=== PATIENT | female | born 1985 | race Caucasian/White ===

== ENCOUNTER → 2018-08-29 | Outpatient (CLI) | payer OTHER ==
[2018-08-29 08:30] LABS: Basophils # (A) 0.1 k/uL (0-0.2); Basophils % (A) 1 %; Eosinophils # (A) 0.3 k/uL (0-0.7); Eosinophils % (A) 4 %; HCT 40.4 % (34.0-46.0); HGB 13.1 gm/dL (11.4-16.0); Lymphocytes # (A) 2.3 k/uL (1.0-4.8); Lymphocytes % (A) 29 %; MCH 29.3 pg (25.0-35.0); MCHC 32.6 g/dL (31.0-37.0); MCV 90.1 fL (80.0-100.0); Mean Platelet Volume 7.3; Monocytes # (A) 0.5 k/uL (0-1.0); Monocytes % (A) 7 %; Neutrophils # (A) 4.5 k/uL (1.3-7.7); Neutrophils % (A) 58 %; Platelet Count 231 k/uL (150-450); RBC 4.48 m/uL (3.80-5.40); WBC 7.8 k/uL (3.8-10.6)
[2018-08-29 17:33] LABS: Hemoglobin A1C 5.1 % (4.0-6.0)
[2018-08-29 19:34] LABS: Albumin 4.4 g/dL (3.80-4.90); Albumin/Globulin Ratio 2.2 (1.20-2.10); Anion Gap 7.6 mmol/L (4.00-12.00); Calcium 8.7 mg/dL (8.7-10.3); Carbon Dioxide 22.4 mmol/L (21.6-31.8); LDL Cholesterol,Calculated 80.4 mg/dL (0.0-131.0); Potassium 4.3 mmol/L (3.5-5.5); Total Bilirubin 0.4 mg/dL (0.2-1.2); Total Protein 6.4 g/dL (6.2-8.2); VLDL Calculation 11.6 mg/dL (5.00-40.00)
== END | disposition home or self-care (01) ==
LOC: LABWHC1 08:03
PROVIDERS: ATTEND Family Medicine
DX: Z00.00 Encounter for general adult medical examination without abnormal findings (principal); R53.83 Other fatigue; R11.0 Nausea; E16.2 Hypoglycemia, unspecified; K29.70 Gastritis, unspecified, without bleeding
CPT/HCPCS: 36415; 80053; 80061; 83036; 83690; 84443; 85025; 86677

== ENCOUNTER 2019-07-02 13:23 | Emergency (ER) | payer OTHER ==
[2019-07-02 13:56] VITALS: PULSE 60; TEMP 98.4
[2019-07-02] MEDS ORDERED: KETOROLAC 30 MG/ML 1 ML VIAL IM STA (14:31)
[2019-07-02] MEDS ORDERED: CYCLOBENZAPRINE 10MG STARTER 3 TAB BTL PO STA (14:31)
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
[2019-07-02 15:15] VITALS: BP 122/78; RESP 14
== END 2019-07-02 15:07 | disposition home or self-care (01) ==
LOC: EC 13:23
DX: S16.1XXA Strain of muscle, fascia and tendon at neck level, initial encounter (principal); F17.200 Nicotine dependence, unspecified, uncomplicated; Z88.8 Allergy status to other drugs, medicaments and biological substances; V43.52XA Car driver injured in collision with other type car in traffic accident, initial encounter; Y92.410 Unspecified street and highway as the place of occurrence of the external cause
CPT/HCPCS: 99283; 96372; J1885

== ENCOUNTER 2019-08-17 16:24 | Emergency (ER) | payer OTHER ==
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
--- NOTE | 2019-08-17 17:28 | XR ---
EXAMINATION TYPE: XR chest 2V DATE OF EXAM: 08/17/2019 COMPARISON: NONE HISTORY: Chest pain TECHNIQUE: Frontal and lateral views of the chest are obtained. FINDINGS: Heart and mediastinum are normal. Lungs are clear. Diaphragm is normal. Bony thorax appear s normal. IMPRESSION: Normal chest
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
[2019-08-17 18:01] VITALS: BP 122/81; PULSE 66; RESP 17; TEMP 97.7
== END 2019-08-17 18:01 | disposition home or self-care (01) ==
LOC: EC 16:24
DX: S20.229A Contusion of unspecified back wall of thorax, initial encounter (principal); F17.200 Nicotine dependence, unspecified, uncomplicated; Z88.8 Allergy status to other drugs, medicaments and biological substances; Y04.0XXA Assault by unarmed brawl or fight, initial encounter; Y92.69 Other specified industrial and construction area as the place of occurrence of the external cause; Y99.0 Civilian activity done for income or pay
CPT/HCPCS: 71046; 72125; 99284

== ENCOUNTER → 2021-02-06 | Outpatient (CLI) | payer BC ==
--- NOTE | 2021-02-07 11:56 | MM ---
Reason for exam: screening (asymptomatic). Baseline mammogram. History: Family history of breast cancer in maternal grandmother. Took hormonal contraceptives for 19 years. Physical Findings: Nurse did not find any significant physical abnormalities on exam. MG 3D Screening Mammo W/Cad Bilateral CC and MLO view(s) were taken. The breast tissue is heterogeneously dense. This may lower the sensitivity of mammography. Lobulated nodular asymmetric density medial anterior right CC view becomes more apparent on 3D images. Otherwise, no discrete abnormality. These results were verbally communicated with the patient and result sheet given to the patient on 02/06/21. ASSESSMENT: Incomplete: need additional imaging evaluation, BI-RAD 0 RECOMMENDATION: Special view mammogram of the right breast. (3D)
--- NOTE | 2021-02-07 11:58 | MM ---
Reason for exam: additional evaluation requested from abnormal screening. History: Family history of breast cancer in maternal grandmother. Took hormonal contraceptives for 19 years. Physical Findings: Breast exam preformed at baseline screening. MG 3D Work Up W/Cad RT Spot compression CC and LM view(s) were taken of the right breast. The breast tissue is heterogeneously dense. This may lower the sensitivity of mammography. Medial asymmetric density on the right does not persist on additional views. These results were verbally communicated with the patient and result sheet given to the patient on 02/06/21. ASSESSMENT: Negative, BI-RAD 1 RECOMMENDATION: Routine screening mammogram of both breasts at age 39. Manage on a clinical basis with regard to right breast pain.
== END | disposition home or self-care (01) ==
LOC: RADMAMWWP 10:07
PROVIDERS: ATTEND Family Medicine
DX: Z12.31 Encounter for screening mammogram for malignant neoplasm of breast (principal); Z78.0 Asymptomatic menopausal state
CPT/HCPCS: 77061; 77063; 77065; 77067

== ENCOUNTER → 2021-04-05 | Outpatient (CLI) | payer BC ==
--- NOTE | 2021-04-05 07:58 | XR ---
EXAMINATION TYPE: XR chest 2V DATE OF EXAM: 04/05/2021 COMPARISON: Chest x-ray 08/17/2019 HISTORY: Chest pressure, heart palpitations TECHNIQUE: Frontal and lateral views of the chest are obtained. FINDINGS: There is no focal air space opacity, pleural effusion, or pneumothorax seen. The cardiac silhouette size is within normal limits. The osseous structures are intact. IMPRESSION: No acute cardiopulmonary process.
== END | disposition home or self-care (01) ==
LOC: RADXRMAIN 07:26
DX: R07.89 Other chest pain (principal); R00.2 Palpitations
CPT/HCPCS: 71046

== ENCOUNTER 2021-10-13 10:16 | Emergency (ER) | payer BC ==
[2021-10-13 10:28] VITALS: TEMP 98.5
[2021-10-13] MEDS ORDERED: SODIUM CHLORIDE 0.9% 1,000 ML IV STA (11:08)
[2021-10-13] MEDS ORDERED: HYDROmorphone 0.5 MG/0.5 ML SYRINGE IVP STA (11:09)
--- NOTE | 2021-10-13 11:43 | US ---
EXAMINATION TYPE: US gallbladder DATE OF EXAM: 10/13/2021 COMPARISON: NONE CLINICAL HISTORY: pain, ruq. Pain EXAM MEASUREMENTS: Liver Length: 14.3 cm Gallbladder Wall: 0.2 cm CBD: 0.4 cm Right Kidney: 10.3 x 4.7 x 4.6 cm Pancreas: wnl Liver: wnl Gallbladder: wnl Evidence for sonographic Delgado's sign: neg CBD: wnl Right Kidney: No hydronephrosis or masses seen IMPRESSION: Unremarkable study
[2021-10-13 11:55] LABS: Basophils % (A) 1 %; Eosinophils # (A) 0.3 k/uL (0-0.7); Eosinophils % (A) 4 %; HCT 44.2 % (34.0-46.0); HGB 13.4 gm/dL (11.4-16.0); Hypochromasia Slight; Lymphocytes # (A) 1.9 k/uL (1.0-4.8); Lymphocytes % (A) 28 %; MCH 27.3 pg (25.0-35.0); MCHC 30.3 g/dL (31.0-37.0); MCV 89.9 fL (80.0-100.0); Mean Platelet Volume 7.5; Monocytes # (A) 0.5 k/uL (0-1.0); Monocytes % (A) 7 %; Neutrophils # (A) 4.2 k/uL (1.3-7.7); Neutrophils % (A) 59 %; Platelet Count 235 k/uL (150-450); RBC 4.92 m/uL (3.80-5.40)
[2021-10-13 12:01] LABS: Appearance,Urine Clear (Clear); Bilirubin,Urine Negative (Negative); Blood,Urine Negative (Negative); Color,Urine Light Yellow; Glucose,Urine (UA) Negative (Negative); Ketones,Urine Negative (Negative); Leukocyte Esterase,Urine Negative (Negative); Nitrite,Urine Negative (Negative); Protein,Urine Negative (Negative); Specific Gravity,Urine 1.006 (1.001-1.035); Urobilinogen,Urine <2.0 mg/dL (<2.0)
[2021-10-13 12:30] LABS: ALT 28 U/L (4-34); AST 23 U/L (14-36); African American GFR (CKD) >90 (>60 ml/min/1.73 sqM); Albumin 4.3 g/dL (3.5-5.0); Alkaline Phosphatase 88 U/L (38-126); Amylase 55 U/L (30-110); Anion Gap 9 mmol/L; Blood Urea Nitrogen 12 mg/dL (7-17); Carbon Dioxide 25 mmol/L (22-30); Chloride 104 mmol/L (98-107); Glucose 86 mg/dL (74-99); Lipase 49 U/L (23-300); Non-African American GFR(CKD) >90 (>60 ml/min/1.73 sqM); Potassium 4.4 mmol/L (3.5-5.1); Sodium 138 mmol/L (137-145); Total Bilirubin 0.4 mg/dL (0.2-1.3); Total Protein 7.6 g/dL (6.3-8.2)
[2021-10-13] MEDS ORDERED: FAMOTIDINE 20 MG/2 ML VIAL IV STA (12:59)
[2021-10-13] MEDS ORDERED: MAG HYDROX/AL HYDROX/SIMETH 30 ML, HYOSCYAMINE ELIXIR 10 ML, LIDOCAINE VISCOUS 2% 10 ML PO STA ×3 (12:59)
--- NOTE | 2021-10-13 13:11 | ED ---
General Adult HPI - General Chief complaint: Abdominal Pain Stated complaint: N/V, abd pain Time Seen by Provider: 10/13/21 10:54 Source: patient Mode of arrival: ambulatory Limitations: no limitations - History of Present Illness Initial comments: 36-year-old female without any significant past medical history presents to the emergency room for abdominal cramping. Patient states she started to have upper abdominal cramping that started this morning. States she has had a few episodes of nausea vomiting as well. States the pain is more in the middle and on the right side. Patient denies any fevers or chills. Denies any diarrhea. Denies any abdominal surgeries except for a years ago.Patient has no other complaints at this time including shortness of breath, chest pain, headache, or visual changes. - Related Data Home Medications Medication Instructions Recorded Confirmed Escitalopram [Lexapro] 5 mg PO HS 10/13/21 10/13/21 Vitamin B Complex 1 cap PO DAILY 10/13/21 10/13/21 Zinc 50 mg PO DAILY 10/13/21 10/13/21 Previous Rx's Medication Instructions Recorded Pantoprazole [Protonix] 40 mg PO DAILY #30 tab 10/13/21 Allergies Allergy/AdvReac Type Severity Reaction Status Date / Time metoclopramide [From Reglan] Allergy Rash/Hives Verified 10/13/21 11:34 Review of Systems ROS Statement: Those systems with pertinent positive or pertinent negative responses have been documented in the HPI. ROS Other: All systems not noted in ROS Statement are negative. Past Medical History Past Medical History: No Reported History History of Any Multi-Drug Resistant Organisms: None Reported Past Surgical History: Section Past Psychological History: No Psychological Hx Reported Smoking Status: Never smoker Past Alcohol Use History: Occasional Past Drug Use History: None Reported General Exam Limitations: no limitations General appearance: alert, in no apparent distress Head exam: Present: atraumatic Eye exam: Present: normal appearance, PERRL, EOMI. Absent: scleral icterus, conjunctival injection ENT exam: Present: normal exam, mucous membranes moist Neck exam: Present: normal inspection, full ROM. Absent: tenderness Respiratory exam: Present: normal lung sounds bilaterally. Absent: respiratory distress, wheezes Cardiovascular Exam: Present: regular rate, normal rhythm, normal heart sounds GI/Abdominal exam: Present: soft, tenderness (Epigastric tenderness and right upper quadrant tenderness. No left upper quadrant tenderness. No lower abdominal tenderness.), normal bowel sounds. Absent: distended, guarding, rebound, rigid Neurological exam: Present: alert Course Vital Signs 10/13/21 10/13/21 10:25 12:27 Temperature 98.5 F Pulse Rate 73 68 Respiratory 18 17 Rate Blood Pressure 121/71 117/70 O2 Sat by Pulse 98 99 Oximetry Medical Decision Making - Medical Decision Making vitals are stable. HPI and physical exam as documented. Pertinent for e pigastric tenderness. No lower abdominal tenderness. Discussed the pain is cramping in nature. CBC CMP unremarkable. White blood cell count is normal. Amylase and lipase are normal. Urinalysis is unremarkable. Gall bladder ultrasound was negative for acute process. He reevaluated, pain is much improved. Abdominal exam repeated and tenderness has nearly resolved. We will start patient on a tonic said this is epigastric in nature for possible gastritis or ulcer formation. We will follow up with GI. Patient was given strict return parameters and she will return for any worsening symptoms. - Lab Data Result diagrams: 10/13/21 11:33 10/13/21 11:33 Lab Results 10/13/21 10/13/21 10/13/21 Range/Units 11:33 11:33 11:33 WBC 7.0 (3.8-10.6) k/uL RBC 4.92 (3.80-5.40) m/uL Hgb 13.4 (11.4-16.0) gm/dL Hct 44.2 (34.0-46.0) % MCV 89.9 (80.0-100.0) fL MCH 27.3 (25.0-35.0) pg MCHC 30.3 L (31.0-37.0) g/dL RDW 14.0 (11.5-15.5) % Plt Count 235 (150-450) k/uL MPV 7.5 Neutrophils % 59 % Lymphocytes % 28 % Monocytes % 7 % Eosinophils % 4 % Basophils % 1 % Neutrophils # 4.2 (1.3-7.7) k/uL Lymphocytes # 1.9 (1.0-4.8) k/uL Monocytes # 0.5 (0-1.0) k/uL Eosinophils # 0.3 (0-0.7) k/uL Basophils # 0.0 (0-0.2) k/uL Hypochromasia Slight Sodium 138 (137-145) mmol/L Potassium 4.4 (3.5-5.1) mmol/L Chloride 104 (98-107) mmol/L Carbon Dioxide 25 (22-30) mmol/L Anion Gap 9 mmol/L BUN 12 (7-17) mg/dL Creatinine 0.55 (0.52-1.04) mg/dL Est GFR (CKD-EPI)AfAm >90 (>60 ml/min/1.73 sqM) Est GFR (CKD-EPI)NonAf >90 (>60 ml/min/1.73 sqM) Glucose 86 (74-99) mg/dL Plasma Lactic Acid Román (0.7-2.0) mmol/L Calcium 9.0 (8.4-10.2) mg/dL Total Bilirubin 0.4 (0.2-1.3) mg/dL AST 23 (14-36) U/L ALT 28 (4-34) U/L Alkaline Phosphatase 88 (38-126) U/L Total Protein 7.6 (6.3-8.2) g/dL Albumin 4.3 (3.5-5.0) g/dL Amylase 55 (30-110) U/L Lipase 49 (23-300) U/L Urine Color Light Yellow Urine Appearance Clear (Clear) Urine pH 7.0 (5.0-8.0) Ur Specific [place] 1.006 (1.001-1.035) Urine Protein Negative (Negative) Urine Glucose (UA) Negative (Negative) Urine Ketones Negative (Negative) Urine Blood Negative (Negative) Urine Nitrite Negative (Negative) Urine Bilirubin Negative (Negative) Urine Urobilinogen <2.0 (<2.0) mg/dL Ur Leukocyte Esterase Negative (Negative) 10/13/21 Range/Units 11:33 WBC (3.8-10.6) k/uL RBC (3.80-5.40) m/uL Hgb (11.4-16.0) gm/dL Hct (34.0-46.0) % MCV (80.0-100.0) fL MCH (25.0-35.0) pg MCHC (31.0-37.0) g/dL RDW (11.5-15.5) % Plt Count (150-450) k/uL MPV Neutrophils % % Lymphocytes % % Monocytes % % Eosinophils % % Basophils % % Neutrophils # (1.3-7.7) k/uL Lymphocytes # (1.0-4.8) k/uL Monocytes # (0-1.0) k/uL Eosinophils # (0-0.7) k/uL Basophils # (0-0.2) k/uL Hypochromasia Sodium (137-145) mmol/L Potassium (3.5-5.1) mmol/L Chloride (98-107) mmol/L Carbon Dioxide (22-30) mmol/L Anion Gap mmol/L BUN (7-17) mg/dL Creatinine (0.52-1.04) mg/dL Est GFR (CKD-EPI)AfAm (>60 ml/min/1.73 sqM) Est GFR (CKD-EPI)NonAf (>60 ml/min/1.73 sqM) Glucose (74-99) mg/dL Plasma Lactic Acid Román 0.8 (0.7-2.0) mmol/L Calcium (8.4-10.2) mg/dL Total Bilirubin (0.2-1.3) mg/dL AST (14-36) U/L ALT (4-34) U/L Alkaline Phosphatase (38-126) U/L Total Protein (6.3-8.2) g/dL Albumin (3.5-5.0) g/dL Amylase (30-110) U/L Lipase (23-300) U/L Urine Color Urine Appearance (Clear) Urine pH (5.0-8.0) Ur Specific [place] (1.001-1.035) Urine Protein (Negative) Urine Glucose (UA) (Negative) Urine Ketones (Negative) Urine Blood (Negative) Urine Nitrite (Negative) Urine Bilirubin (Negative) Urine Urobilinogen (<2.0) mg/dL Ur Leukocyte Esterase (Negative) Disposition Clinical Impression: Abdominal pain Disposition: HOME SELF-CARE Condition: Good Instructions (If sedation given, give patient instructions): Abdominal Pain (ED) Additional Instructions: Take medications as directed. Follow-up with your doctor as well as GI. Return to the emergency room for any worsening symptoms. Prescriptions: Pantoprazole [Protonix] 40 mg PO DAILY #30 tab Is patient prescribed a controlled substance at d/c from ED?: No Referrals: Osvaldo Nuñez DO [Primary Care Provider] - 1-2 days Angelia Hale MD [STAFF PHYSICIAN] - 1-2 days Time of Disposition: 13:10
[2021-10-13 13:31] VITALS: BP 111/67; PULSE 67; RESP 18
== END 2021-10-13 13:40 | disposition home or self-care (01) ==
LOC: EC 10:16
DX: R10.9 Unspecified abdominal pain (principal); Z72.89 Other problems related to lifestyle
CPT/HCPCS: 36415; 80053; 82150; 83605; 83690; 85025; 81003; 81025; 76705; 99284; 96374; 96375; 96361; J1170

== ENCOUNTER 2021-11-14 10:01 | Day surgery (SDC) | payer BC ==
[2021-11-09 10:32] VITALS: BMI 31.8
[~2021-11-14 10:01] MED LIST: LACTATED RINGERS 1,000 ML IV SCH; LIDOCAINE 1% (10MG/ML) FOR IV START INTRADERMA PRN
[2021-11-14 10:39] VITALS: RESP 18; TEMP 98.4
[2021-11-14 10:50] LABS: Glucose,Whole Blood 78 mg/dL (75-99)
[2021-11-14] MEDS ORDERED: PROPOFOL 10 MG/ML 20 ML VIAL IV ONE (11:24)
--- NOTE | 2021-11-14 11:32 | P.PCN ---
Date of Procedure: 11/14/21 Procedure(s) Performed: BRIEF HISTORY: Patient is a 36-year-old, pleasant, white female scheduled for an upper endoscopy as a part of evaluation of epigastric pain for the last 1 month duration. Centimeters episodes of screening and the last 1 month and lasts for a few hours and resolved. She can have also the gallbladder that was unremarkable. She is hence scheduled for an upper endoscopy to further.. PROCEDURE PERFORMED: Esophagogastroduodenoscopy. With biopsy PREOPERATIVE DIAGNOSIS: And intermittent episodes of epigastric pain of one month duration. IV sedation per anesthesia. PROCEDURE: After informed consent was obtained, the patient was brought into the endoscopy unit. IV sedation was administered by Anesthesia under continuous monitoring. Initially the Olympus GIF-140 video endoscope was inserted into the mouth. Esophagus intubated without any difficulty. It was gradually advanced into the stomach and duodenum and carefully examined. The bulb and the second part of the duodenum appeared normal. The scope at this time was withdrawn to the stomach, adequately insufflated with air, and upon careful examination, mucosa of the antrum, had linear areas of erythema consistent with mild gastritis. Biopsies were done from this area. The body, cardia and the fundus appeared normal. The scope was then withdrawn into the esophagus. The GE junction was located at 39 cm from the incisors. The esophagus appeared normal. There were no erosions or ulcerations seen and the patient tolerated the procedure well. IMPRESSION: 1. Mild antral gastritis. 2. No evidence of esophagitis or peptic ulcer disease. RECOMMENDATIONS: The findings of this examination were discussed with the patient as well as a family. She was advised to follow with the biopsy results.. She will continue with Protonix 40 mg daily. She will be scheduled for HIDA scan outpatient basis
[2021-11-14] MEDS ORDERED: PANTOPRAZOLE 40 MG/10 ML VIAL IVP ONE (11:52)
[2021-11-14 11:57] VITALS: BP 94/59; PULSE 61
== END 2021-11-14 12:35 | disposition home or self-care (01) ==
LOC: ORWHC2ENDO 10:01
PROVIDERS: ATTEND Internal Medicine Gastroenterology
DX: K29.50 Unspecified chronic gastritis without bleeding (principal); K21.9 Gastro-esophageal reflux disease without esophagitis; E16.2 Hypoglycemia, unspecified; F41.9 Anxiety disorder, unspecified; F32.A Depression, unspecified; Z87.891 Personal history of nicotine dependence; Z79.899 Other long term (current) drug therapy; Z88.8 Allergy status to other drugs, medicaments and biological substances
CPT/HCPCS: 81025; 88305; 43239; J2704; C9113

== ENCOUNTER → 2021-12-12 | Outpatient (CLI) | payer BC ==
--- NOTE | 2021-12-12 09:30 | NM ---
EXAMINATION TYPE: NM hepatobiliary w EF DATE OF EXAM: 12/12/2021 COMPARISON: Gallbladder ultrasound October 13, 2021 HISTORY: Right upper quadrant pain. Additional symptoms of epigastric pain with nausea and vomiting p er patient TECHNIQUE: After the intravenous administration of 5.2 mCi Tc 99m Mebrofenin hepatobiliary scintigrap hy is performed. Immediate images post injection. FINDINGS: There is satisfactory initial accumulation of tracer by the liver. The gallbladder is visualized wit hin 30 minutes. The small bowel activity is noted within 20 minutes. At one hour 8 ounces of oral e nsure plus is given to mimic CCK and gallbladder ejection fraction is calculated at 71 %, in the norm al range. Therefore there is no scintigraphic evidence of cystic or common bile duct obstruction to suggest acute cholecystitis or gallbladder dyskinesia. IMPRESSION: Exam is within normal limits.
== END | disposition home or self-care (01) ==
LOC: RADNMMAIN 06:42
PROVIDERS: ATTEND Internal Medicine Gastroenterology
DX: R10.13 Epigastric pain (principal); R10.11 Right upper quadrant pain; R11.2 Nausea with vomiting, unspecified
CPT/HCPCS: 78226; A9537

== ENCOUNTER 2023-01-17 05:39 | Day surgery (SDC) | payer BC ==
--- NOTE | 2023-01-16 12:29 | P.HPOB ---
History of Present Illness H&P Date: 01/16/23 Chief Complaint: Menorrhagia/dysmenorrhea This patient is a pleasant 37 yr female who is presenting for endometrial ablation secondary to menorrhagia and dysmenorrhea. This has been going on for a while. Evaluation has included a transvaginal ultrasound which was normal with the exception of s1.7cm right fundal fibroid. She tried Anaprox. She was offered trial of hormonal options, but does not want. She would like to try an endometrial ablation. Review of Systems Genitourinary: Reports as per HPI, Reports dysmenorrhea Menstruation: Reports period heavy Past Medical History Past Medical History: GERD/Reflux Additional Past Medical History / Comment(s): hypoglycemia, heavy bleeding with periods. low iron. on and off. History of Any Multi-Drug Resistant Organisms: None Reported Past Surgical History: Section, Tubal Ligation Additional Past Surgical History / Comment(s): EgD Past Anesthesia/Blood Transfusion Reactions: No Reported Reaction Past Psychological History: No Psychological Hx Reported Smoking Status: Former smoker Past Alcohol Use History: None Reported Past Drug Use History: None Reported - Past Family History Mother Family Medical History: No Reported History Father Family Medical History: Diabetes Mellitus Medications and Allergies Home Medications Medication Instructions Recorded Confirmed Type Ibuprofen [Motrin Ib] 600 - 800 mg PO Q8H PRN 01/10/23 01/10/23 History Allergies Allergy/AdvReac Type Severity Reaction Status Date / Time metoclopramide [From Reglan] Allergy Rash/Hives Verified 01/10/23 12:15 Exam - OBG Physical Exam Abdomen: bowel sounds normal Vulva: both: normal Vagina: normal moisture, no discharge Cervix: no lesion, no discharge Uterus: normal size, normal contour Results Trasvaginal ultrasound on Dec 28 showed endometrium to be normal. Possible 2.1cm fundal fibroid. Assessment and Plan Assessment: This is a pleasant 37 yr female with longstanding menorrhagia and dysmenorrhea who desires trial of endometrial ablation for treatment. Plan is hysteroscopy, D&C, and Novasure endometrial ablation. I have discussed this surgery with Tano and the risks: infection, bleeding, possible uterine perforation and/or thermal injury. All of her questions were answered and a written consent obtained. (1) Menorrhagia Status: Acute Code(s): N92.0 - EXCESSIVE AND FREQUENT MENSTRUATION WITH REGULAR CYCLE SNOMED Code(s): 454039106 (2) Dysmenorrhea Status: Acute Code(s): N94.6 - DYSMENORRHEA, UNSPECIFIED SNOMED Code(s): 568692103
[~2023-01-17 05:39] MED LIST changes: -LACTATED RINGERS 1,000 ML IV SCH; -LIDOCAINE 1% (10MG/ML) FOR IV START INTRADERMA PRN; +Pre Op ABX Message 1 EACH MISC MISCELLANE ONE
[2023-01-17] MEDS ORDERED: LACTATED RINGERS 1,000 ML IV SCH (06:09)
[2023-01-17] MEDS ORDERED: ONDANSETRON 4 MG/2 ML VIAL IVP ONE (06:09)
[2023-01-17] MEDS ORDERED: LIDOCAINE 1% (10MG/ML) FOR IV START INTRADERMA PRN (06:09)
[2023-01-17] MEDS ORDERED: DEXAMETHASONE SOD PHOSPHATE 4 MG/ML 1 ML VIAL IV ONE (06:09)
[2023-01-17] MEDS ORDERED: MIDAZOLAM 2 MG/2 ML VIAL IV PRN (06:09)
[2023-01-17] MEDS ORDERED: LACTATED RINGERS 1,000 ML IV ONE ×2 (06:30→09:00)
[2023-01-17] MEDS ORDERED: LIDOCAINE 2% INJ 20 MG/ML (2 ML VIAL) ONE (06:50)
[2023-01-17] MEDS ORDERED: KETOROLAC 15 MG/ML 1 ML VIAL ONE (06:50)
[2023-01-17] MEDS ORDERED: fentaNYL (PF) 50 MCG/ML 2 ML AMP ONE (06:50)
[2023-01-17] MEDS ORDERED: MIDAZOLAM 2 MG/2 ML VIAL ONE (06:50)
[2023-01-17] MEDS ORDERED: PROPOFOL 10 MG/ML 20 ML VIAL IV ONE (06:50)
--- NOTE | 2023-01-17 07:31 | P.OP ---
Date of Procedure: 01/17/23 Preoperative Diagnosis: Menorrhagia and dysmenorrhea Postoperative Diagnosis: Same Procedure(s) Performed: #1: Hysteroscopy. #2: Dilation and curettage. #3: NovaSure endometrial ablation Anesthesia: MAC Surgeon: Matt Duffy Estimated Blood Loss (ml): 20 Urine output (ml): 10 Pathology: other (Uterine curettings) Condition: stable Disposition: PACU Indications for Procedure: Please see dictated H&P for intimate details of this patient's admission. In brief summary this pleasant 37-year-old 2 para 2 female with long- standing menorrhagia and dysmenorrhea who wishes to proceed with trial of NovaSure endometrial ablation for treatment. Patient I have discussed the surgery and risks and risks of infection, bleeding, possible uterine perforation, and/or thermal injury. All the patient's questions are answered and a written consent is obtained. Operative Findings: This patient had a normal-appearing endometrial cavity. Description of Procedure: This patient is taken to the operating room where she is laid in the supine position. She subsequently undergoes general mask anesthesia without incident. With an adequate level of anesthesia she's placed in dorsal lithotomy position. She has a vaginal and perineal prep and drape. Examination under anesthesia shows a mid position uterus of normal size. I placed a weighted speculum posterior vagina. The bladder is drained for 10 mL of clear urine. I then grasped the anterior lip of cervix with an Allis clamp. The cervix is then gently sounded to 9.5 cm. The cervix is then dilated carefully to allow the hysteroscope easily and the uterine cavity. Hysteroscopy is performed uterine cavity length was calculated to be 6.0 cm. The cervix is dilated more to allow a small curette easily and the uterine cavity. A gentle but thorough 4 quadrant curettage is done. This completed the NovaSure device is then opened. It is set at a length of 6.0 cm and opens up to a width of 4.3 cm. After passing the cavity integrity test is then enabled at 142 W setting for 57 seconds. The NovaSure device is then removed. Hysteroscopy is performed again and the uterine cavity appears to be ablated up to the endocervix. With this completed the procedure is ended. The Allis clamp and weighted speculum removed. All counts are correct 3. There are no complications. Patient is awakened from anesthesia and taken recovery room satisfactory condition.
[2023-01-17 07:36] VITALS: TEMP 97.2
[2023-01-17] MEDS: HYDROmorphone 0.5 MG/0.5 ML SYRINGE IVP PRN ×3 (07:44→08:19)
[2023-01-17] MEDS ORDERED: KETOROLAC 15 MG/ML 1 ML VIAL IVP ONE (08:06)
[2023-01-17 08:32] VITALS: RESP 16
[2023-01-17] MEDS ORDERED: ACETAMINOPHEN TAB 500 MG TAB ONE (09:05)
[2023-01-17] MEDS ORDERED: ACETAMINOPHEN TAB 500 MG TAB PO ONE (09:07)
[2023-01-17 09:40] VITALS: BP 105/65; PULSE 62
== END 2023-01-17 09:55 | disposition home or self-care (01) ==
LOC: OR 05:39
PROVIDERS: ATTEND Obstetrics & Gynecology
DX: N92.0 Excessive and frequent menstruation with regular cycle (principal); N94.6 Dysmenorrhea, unspecified; D25.9 Leiomyoma of uterus, unspecified; K21.9 Gastro-esophageal reflux disease without esophagitis; Z79.1 Long term (current) use of non-steroidal anti-inflammatories (NSAID); Z83.3 Family history of diabetes mellitus; Z87.891 Personal history of nicotine dependence; Z88.8 Allergy status to other drugs, medicaments and biological substances
CPT/HCPCS: 81025; 88305; 58563; J2250; J1100; J2405; J3010; J1885; J2704; J1170; J2001

== ENCOUNTER 2023-03-13 22:01 | Inpatient (IN) | payer BC, MEDICAID ==
[2023-03-13] MEDS ORDERED: MAGNESIUM HYDROXIDE 2,400 MG/10 ML CUP PO PRN (22:05)
[2023-03-13] MEDS ORDERED: MAG HYDROX/AL HYDROX/SIMETH 30 ML CUP PO PRN (22:05)
[2023-03-13] MEDS ORDERED: ACETAMINOPHEN TAB 325 MG TAB PO PRN (22:05)
[2023-03-13] MEDS ORDERED: OLANZapine 10 MG VIAL IM PRN (22:09)
[2023-03-13] MEDS ORDERED: hydrOXYzine HCL 50 MG/ML 1 ML VIAL IM PRN (22:09)
[2023-03-13] MEDS ORDERED: hydrOXYzine pamoate 25 MG CAP PO PRN (22:09)
[2023-03-13] MEDS ORDERED: OLANZapine 5 MG TAB PO PRN (22:09)
[2023-03-14] MEDS: NICOTINE 14MG/24HR PATCH TRANSDERM SCH (08:49)
[2023-03-14] MEDS ORDERED: LORazepam 1 MG TAB PO PRN (11:53)
[2023-03-14] MEDS: DULoxetine HCL 30 MG CAPSULE.DR PO SCH (12:18)
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
[2023-03-14] MEDS: traZODone HCL 50 MG TAB PO SCH (22:00)
[2023-03-15] MEDS: NICOTINE 14MG/24HR PATCH TRANSDERM SCH (08:47)
[2023-03-15] MEDS: DULoxetine HCL 30 MG CAPSULE.DR PO SCH ×2 (08:47→21:02)
[2023-03-15] MEDS: MULTIVITAMINS, THERA 1 EACH TAB PO SCH (08:48)
[2023-03-15] MEDS: FOLIC ACID 1 MG TAB PO SCH (08:48)
[2023-03-15] MEDS: THIAMINE 100 MG TAB PO SCH (08:48)
--- NOTE | 2023-03-15 10:34 | P.PN ---
Progress Note - Text Progress Note Date: 03/15/23 Interval Hx: Patient was seen today sitting in on group this morning and was agreeable to speak to racebook writer in the office. Patient states that she is feeling "about the same" compared to yesterday. She claims she did not see much improvement since being started on the medications. She states that she did have a mild reaction and felt "a little bit off" after taking her first dose of Cymbalta yesterday however this morning tolerated better. Continues to have poor appetite and claims that she did not eat much breakfast today. She did eat lunch and dinner yesterday. Claims that she slept about 5-6 hours last night. States that her anxiety is about the same. We spoke about the option for when necessary Vistaril. She claims that she is not having much withdrawal symptoms from the alcohol. She continues to have a constricted affect. We spoke about adjusting her medications over the weekend which she was okay with. Claims that she is trying to go to as many groups as she can to "pass the time". At this time she is denying any suicidal or homicidal ideations intent or plan. Denying any auditory or visual hallucinations. Mental status exam: General Appearance: Patient appears to be wearing glasses, nose ring, stated age is alert, directable, and attempts to cooperate. not Tearful today. Patient appears to have fair hygiene and grooming. Behavior: Patient is seated without any agitated behavior. Attempts to cooperate. Not tearful. Speech: Patient's speech is fluent and nonpressured. Monotone. Mood/Affect: Patient reports their mood is depressed and anxious, no improvement since yesterday, affect is congruent and constricted. Suicidality/Homicidality: Patient denies having any homicidal ideation intent or plan. Denies any suicidal ideations intent or plan Perceptions: Patient denies any visual hallucinations and denies any auditory hallucinations Though content/process: There is no evidence of any delusional thought content and thought process is linear and goal-directed. Memory and concentration: AOX3, grossly intact for the purposes of this session Judgment and insight: Improving mildly IMPRESSIONS: Major depressive disorder, recurrent, severe without psychotic features Anxiety disorder unspecified Overdose on psychotropic medications Alcohol use disorder Nicotine dependence PLAN: -Patient is admitted under voluntary status to [facility] for stabilization of psychiatric symptoms and safety. Patient has signed adult voluntary form and medication consent and is placed in patient's chart. -Medications : Increase Cymbalta 30 mg bid for mood/anxiety, trazodone 50 mg daily at bedtime for insomnia/mood. -Ativan, vistaril and zyprexa PRN for agitation/aggression -thiamine, MVM for etoh use -CIWA protocol with Ativan PRN for ETOH withdrawal, can d/c tomorrow if patient continues to not demonstrate w/d sx. -NRT - nicotine patch -SW on board for discharge planning. Encourage patient to participate in groups to work on coping skills. likely discharge early next week if patient improves. will offer outpatient subtance use resources.
[2023-03-16] MEDS: traZODone HCL 50 MG TAB PO SCH ×2 (00:10→22:02)
[2023-03-16] MEDS: THIAMINE 100 MG TAB PO SCH (08:37)
[2023-03-16] MEDS: MULTIVITAMINS, THERA 1 EACH TAB PO SCH (08:37)
[2023-03-16] MEDS: FOLIC ACID 1 MG TAB PO SCH (08:38)
[2023-03-16] MEDS: DULoxetine HCL 30 MG CAPSULE.DR PO SCH ×2 (08:38→21:02)
--- NOTE | 2023-03-16 19:08 | P.PN ---
Progress Note - Text Progress Note Date: 03/16/23 Interval history: Patient was seen on the phone and was directable and agreeable to speak with writer editor. She reports her mood is "ok", except for feeling irritated in finding out her ex- wants to get try to get shared custody of their children. She denies suicidal ideations, intent or plan, and denies any homicidal ideation, intent or plan. She reports her good mood, sleep and improving appetite. Denies any auditory or visual hallucinations. Patient denies any side effects from the medications and has been compliant with meds. Mental status exam: General Appearance: Patient appears to be stated age, has tattoos on arms. Behavior: No agitated behavior. Patient is calm and directable. Speech: Patient's speech is fluent and non-pressured. Mood/Affect: Mood is improving, affect is congruent and constricted. Suicidality/Homicidality: Patient denies having any suicidal or homicidal ideation intent or plan. Perceptions: Patient denies any auditory or visual hallucinations. Though content/process: There is no evidence of any delusional thought content and thought process is linear and goal-directed. Memory and concentration: AOX3, grossly intact for the purposes of this session Judgment and insight: improving Assessment/Plan: Continue with current diagnosis. Patient continues to meet criteria for inpatient psychiatric admission for symptom stabilization and safety. Patient will be maintained on current psychotropic medication regimen. Monitor for medication compliance and for any psychotropic medication side effects. Will continue to monitor ongoing response to treatment. Encouraged participation in milieu.
--- NOTE | 2023-03-17 00:29 | P.PN ---
Progress Note - Text Progress Note Date: 03/17/23 Attempted to see the patient in the mental health unit. The patient refused to be seen or be evaluated. Will attempt again tomorrow
[2023-03-17] MEDS: THIAMINE 100 MG TAB PO SCH (08:46)
[2023-03-17] MEDS: DULoxetine HCL 30 MG CAPSULE.DR PO SCH ×2 (08:46→21:03)
[2023-03-17] MEDS: MULTIVITAMINS, THERA 1 EACH TAB PO SCH (08:47)
[2023-03-17] MEDS: FOLIC ACID 1 MG TAB PO SCH (08:47)
--- NOTE | 2023-03-17 20:23 | P.PN ---
Progress Note - Text Progress Note Date: 03/17/23 Interval history: Patient was seen active on the unit and was directable and agreeable to speak with technical document writer. She reports her mood is "good". She denies suicidal ideation, intent or plan, and denies any homicidal ideation, intent or plan. She reports good mood, sleep and improving appetite. Denies any auditory or visual hallucinations. Patient denies any side effects from the medications and has been compliant with meds. Mental status exam: General Appearance: Patient appears to be stated age, has tattoos on arms. Behavior: No agitated behavior. Patient is calm and directable. Speech: Patient's speech is fluent and non-pressured. Mood/Affect: Mood is improving, affect is congruent and constricted. Suicidality/Homicidality: Patient denies having any suicidal or homicidal ideation intent or plan. Perceptions: Patient denies any auditory or visual hallucinations. Though content/process: There is no evidence of any delusional thought content and thought process is linear and goal-directed. Memory and concentration: AOX3, grossly intact for the purposes of this session Judgment and insight: improving Assessment/Plan: Continue with current diagnosis. Patient continues to meet criteria for inpatient psychiatric admission for symptom stabilization and safety. Patient will be maintained on current psychotropic medication regimen. Monitor for medication compliance and for any psychotropic medication side effects. Will continue to monitor ongoing response to treatment. Encouraged participation in milieu. Consider discharge tomorrow (Saturday) if continues to stabilize.
[2023-03-17] MEDS: traZODone HCL 50 MG TAB PO SCH (21:59)
--- NOTE | 2023-03-18 04:38 | P.CONS ---
History of Present Illness - Reason for Consult Consult date: 03/18/23 - History of Present Illness The patient is a 38-year-old female who had presented to [facility] with complaint of depression and suicidal ideation. The patient was admitted to the mental health unit where she was seen and evaluated accompanied by the mental health unit RN. The patient states that she had recently been really stressed out and had attempted to commit suicide by taking 5 tablets of Xanax and drinking alcohol. She reports drinking 5-6 beers nightly. The patient reports feeling significantly better after her admission into the hospital. She denied any physical complaints at the time of interview. He denied experiencing chest discomfort, shortness of breath, fever, chills, cough, nausea, vomiting, abdominal pain, diarrhea. Review of systems: Pertinent positives and negatives as discussed in HPI, a complete review of systems was performed and all other systems are negative. Physical examination: General: non toxic, no distress, appears at stated age, obese Derm: no unusual rashes/lesions, no unusual ecchymoses, warm, dry Head: atraumatic, normocephalic, symmetric Eyes: EOMI, no lid lag, anicteric sclera ENT: Nose and ears atraumatic, no thrush, no pharyngeal erythema Neck: trachea midline, supple Mouth: no lip lesion, mucus membranes moist Cardiovascular: S1S2 reg, no murmur, no edema Lungs: CTA bilateral, no rhonchi, no rales , no accessory muscle use Abdominal: soft, nontender to palpation, no guarding Ext: no gross muscle atrophy, no contractures, Neuro: No gross focal neuro deficits noted Psych: Alert, oriented, appropriate affect Assessment: Depression and suicidal ideation Plan: Defer management to primary psychiatry service Thank you for allowing us to participate in the care of this patient. We will follow peripherally. Do not hesitate to contact us with questions. Someone can be reached from the [facility] hospitalist group at all hours of the day at [phone]. Past Medical History Past Medical History: GERD/Reflux Additional Past Medical History / Comment(s): hypoglycemia, heavy bleeding with periods. low iron. on and off. History of Any Multi-Drug Resistant Organisms: None Reported Past Surgical History: Section, Tubal Ligation Additional Past Surgical History / Comment(s): EgD Past Anesthesia/Blood Transfusion Reactions: No Reported Reaction Smoking Status: Vaper - Past Family History Mother Family Medical History: No Reported History Father Family Medical History: Diabetes Mellitus Medications and Allergies Home Medications Medication Instructions Recorded Confirmed Type Ibuprofen [Motrin Ib] 600 - 800 mg PO Q8H PRN 01/10/23 01/17/23 History Ibuprofen [Motrin] 600 mg PO Q6HR PRN #30 tab 01/17/23 Rx Allergies Allergy/AdvReac Type Severity Reaction Status Date / Time metoclopramide [From Reglan] Allergy Rash/Hives Verified 01/17/23 06:17 Physical Exam Vitals: Vital Signs Temp Pulse Resp BP Pulse Ox 03/17/23 06:29 98.0 F 76 16 115/58 98 Intake and Output 03/17/23 03/17/23 03/18/23 14:59 22:59 06:59 Other: Weight 79.5 kg
[2023-03-18 06:38] VITALS: BP 112/64; PULSE 66; RESP 18; TEMP 97.8
[2023-03-18] MEDS: FOLIC ACID 1 MG TAB PO SCH (09:11)
[2023-03-18] MEDS: DULoxetine HCL 30 MG CAPSULE.DR PO SCH (09:11)
[2023-03-18] MEDS: THIAMINE 100 MG TAB PO SCH (09:12)
[2023-03-18] MEDS: MULTIVITAMINS, THERA 1 EACH TAB PO SCH (09:12)
--- NOTE | 2023-03-18 11:53 | P.DS ---
Providers Date of admission: 03/13/23 22:20 Patient was seen today on the unit to review her progress. She indicated she has been improving in her mood . She was confident that she could continue to cope with custody related issue . She compliemnted herself for approaching the Crisis with short term stay . She tolerated the Rx with no adverse events. She did not have any EPS and no longer has any suciidal ideation. She was compliant with follow up Dischage Rx; Major depressive disorder in partial remission ; marked stressors Rx : as indicated in Rx panel Attending physician: Jg Hutchison MD Consults: 03/13/23 22:05 Consult Physician Routine Consulting Provider: [facility] Consult Reason/Comments: H&P Do you want consulting provider notified?: Yes Primary care physician: Stated None Plan - Discharge Summary Discharge Rx Participant: Yes New Discharge Prescriptions: New traZODone HCL [Desyrel] 50 mg PO HS 30 Days #30 tab Discontinued Ibuprofen [Motrin Ib] 600 - 800 mg PO Q8H PRN PRN Reason: Pain Ibuprofen [Motrin] 600 mg PO Q6HR PRN #30 tab PRN Reason: Pain Discharge Medication List traZODone HCL [Desyrel] 50 mg PO HS 30 Days #30 tab 03/18/23 [Rx] Activity/Diet/Wound Care/Special Instructions: Avoid the use of street drugs and alcohol. Take all medications as prescribed. When you are in need of refills on your medications, please contact your medical provider and/or outpatient psychiatrist to have this done. Please go to scheduled outpatient appointments for aftercare treatment. If symptoms return or become worse, call the crisis line at and/or go to the nearest emergency room for evaluation.
== END 2023-03-18 13:00 | disposition home or self-care (01) | DRG 885 ==
LOC: 3MHU 22:20
PROVIDERS: ADMIT Psychiatry & Neurology Psychiatry; ATTEND Psychiatry & Neurology Psychiatry
DX: F32.4 Major depressive disorder, single episode, in partial remission (principal); F10.90 Alcohol use, unspecified, uncomplicated; F41.9 Anxiety disorder, unspecified; T42.4X2A Poisoning by benzodiazepines, intentional self-harm, initial encounter; R63.0 Anorexia; F17.290 Nicotine dependence, other tobacco product, uncomplicated; Z62.810 Personal history of physical and sexual abuse in childhood; Z62.811 Personal history of psychological abuse in childhood; Z62.812 Personal history of neglect in childhood; Z68.31 Body mass index [BMI] 31.0-31.9, adult; Z88.8 Allergy status to other drugs, medicaments and biological substances; Z81.1 Family history of alcohol abuse and dependence; Z63.8 Other specified problems related to primary support group

== ENCOUNTER → 2023-06-24 | Outpatient (CLI) | payer BC ==
--- NOTE | 2023-06-25 09:33 | CT ---
EXAMINATION TYPE: CT abdomen pelvis w con DATE OF EXAM: 06/24/2023 COMPARISON: None HISTORY: c/o diarrhea CT DLP: 842.6 mGycm Automated exposure control for dose reduction was used. CONTRAST: CT scan of the abdomen pelvis is performed with IV Contrast, patient injected with 100 mL of Isovue 3 00. FINDINGS- LUNG BASES- bibasilar atelectasis. Heart mildly prominent. Small hiatal hernia. LIVER/GB- No gross abnormality is appreciated. PANCREAS- No gross abnormality is seen. SPLEEN- No gross abnormality is seen. ADRENALS- No gross abnormality is seen. KIDNEYS/BLADDER- no hydronephrosis nephrolithiasis or renal mass. BOWEL- no evidence of bowel obstruction or inflammation. Mild wall thickening of the terminal ileum. Retained fecal debris throughout the colon. LYMPH NODES- No greater than 1cm abdominal or pelvic lymph nodes are appreciated. OSSEOUS STRUCTURES- mild degenerative disc disease. OTHER- on the right lateral side wall there is a soft tissue mass measuring fat attenuation and 3.7 cm compatible with a intramuscular lipoma. There is a small cyst within the left ovary measuring 1.5 cm. Scattered phleboliths in the pelvis. Lobulation of the uterus noted. Aorta normal caliber. IMPRESSION- 1. No evidence of bowel obstruction or inflammation. Very mild wall thickening of the terminal ileum could be associated with a mild enteritis correlate clinically. 2. Lobulation of the uterus with suspected 1.5 cm left ovarian cyst. Consider follow-up ultrasound to assess for fibroids.
== END | disposition home or self-care (01) ==
LOC: RADCTMAIN 15:53
PROVIDERS: ATTEND Family Medicine
DX: K63.89 Other specified diseases of intestine (principal); R19.7 Diarrhea, unspecified
CPT/HCPCS: 74177; Q9967

== ENCOUNTER → 2023-07-10 | Outpatient (CLI) | payer BC ==
[2023-07-10 22:23] LABS: Gliadin AB IgA, Deaminated Negative (Negative); Gliadin AB IgA, Unit 1.4 U/mL; Gliadin AB IgG, Deaminated Negative (Negative); Gliadin AB IgG, Unit 0.4 U/mL
== END | disposition home or self-care (01) ==
LOC: LABWHC1 07:36
PROVIDERS: ATTEND Nurse Practitioner Family
DX: R19.7 Diarrhea, unspecified (principal)
CPT/HCPCS: 36415; 83516; 85652; 86140

== ENCOUNTER → 2024-07-08 | Outpatient (CLI) | payer BC ==
--- NOTE | 2024-07-08 11:41 | XR ---
EXAMINATION TYPE: XR chest 2V DATE OF EXAM: 07/08/2024 11:34 AM COMPARISON: Chest radiographs from 04/05/21 TECHNIQUE: XR chest 2V Frontal and lateral views of the chest. CLINICAL INDICATION:Female, 39 years old with history of SOB R06.02; FINDINGS: Lungs/Pleura: There is no evidence of pleural effusion, focal consolidation, or pneumothorax. Pulmonary vascularity: Unremarkable. Heart/mediastinum: Cardiomediastinal silhouette is unremarkable. Musculoskeletal: No acute osseous pathology. IMPRESSION: No acute cardiopulmonary disease/process.
== END | disposition home or self-care (01) ==
LOC: RADXRMAIN 11:13
PROVIDERS: ATTEND Nurse Practitioner Family
DX: R06.02 Shortness of breath (principal)
CPT/HCPCS: 71046

== ENCOUNTER 2025-03-02 11:00 | Emergency (ER) | payer BC ==
[2025-03-02 11:04] VITALS: RESP 18; TEMP 98.1
--- NOTE | 2025-03-02 11:32 | ED ---
Eye Problem HPI - General Chief complaint: Eye Problems Stated complaint: L eye issue Time Seen by Provider: 03/02/25 11:06 Source: patient, RN notes reviewed Mode of arrival: ambulatory Limitations: no limitations - History of Present Illness Initial comments: 40-year-old female presents emergency department with chief complaint of left eye irritation. Patient states she woke up this denies, drainage and crusting this morning. Denies any trauma no photophobia no blurred vision no other complaints. - Related Data Previous Rx's Medication Instructions Recorded traZODone HCL [Desyrel] 50 mg PO HS 30 Days #30 tab 03/18/23 Allergies Allergy/AdvReac Type Severity Reaction Status Date / Time metoclopramide [From Reglan] Allergy Rash/Hives Verified 03/02/25 11:04 Review of Systems ROS Statement: Those systems with pertinent positive or pertinent negative responses have been documented in the HPI. ROS Other: All systems not noted in ROS Statement are negative. Past Medical History Past Medical History: GERD/Reflux Additional Past Medical History / Comment(s): hypoglycemia, heavy bleeding with periods. low iron. on and off. History of Any Multi-Drug Resistant Organisms: None Reported Past Surgical History: Section, Tubal Ligation Additional Past Surgical History / Comment(s): EgD Past Anesthesia/Blood Transfusion Reactions: No Reported Reaction Past Psychological History: No Psychological Hx Reported Smoking Status: Vaper - Past Family History Mother Family Medical History: No Reported History Father Family Medical History: Diabetes Mellitus General Exam Limitations: no limitations General appearance: alert, in no apparent distress Head exam: Present: atraumatic, normocephalic, normal inspection Eye exam: Present: PERRL, EOMI, conjunctival injection (Mild left with some current drainage noted). Absent: normal appearance, scleral icterus, periorbital swelling ENT exam: Present: normal exam, mucous membranes moist Neck exam: Present: normal inspection, full ROM. Absent: tenderness, meningismus, lymphadenopathy Respiratory exam: Present: normal lung sounds bilaterally. Absent: respiratory distress, wheezes, rales, rhonchi, stridor Cardiovascular Exam: Present: regular rate, normal rhythm, normal heart sounds. Absent: systolic murmur, diastolic murmur, rubs, gallop, clicks Course Vital Signs 03/02/25 03/02/25 11:02 11:43 Temperature 98.1 F 98.1 F Pulse Rate 77 72 Respiratory 18 18 Rate Blood Pressure 131/85 128/76 O2 Sat by Pulse 97 98 Oximetry Medical Decision Making - Medical Decision Making Was pt. sent in by a medical professional or institution ([facility], [employer], urgent care, hospital, or shelter...) When possible be specific @ -No Did you speak to anyone other than the patient for history (EMS, parent, family, police, friend...)? What history was obtained from this source @ -No Did you review nursing and triage notes (agree or disagree)? Why? @ -I reviewed and agree with nursing and triage notes Were old charts reviewed (outside hosp., previous admission, EMS record, old EKG, old radiological studies, urgent care reports/EKG's, shelter records)? Report findings @ -No old charts were reviewed Differential Diagnosis (chest pain, altered mental status, abdominal pain women, abdominal pain men, vaginal bleeding, weakness, fever, dyspnea, syncope, headache, dizziness, GI bleed, back pain, seizure, CVA, palpatations, mental health, musculoskeletal)? @ -Conjunctivitis, allergic reaction, stye EKG interpreted by me (3pts min.). @ -None X-rays interpreted by me (1pt min.). @ -None done CT interpreted by me (1pt min.). @ -None done U/S interpreted by me (1pt. min.). @ -None done What testing was considered but not performed or refused? (CT, X-rays, U/S, labs)? Why? @ -None What meds were considered but not given or refused? Why? @ -None Did you discuss the management of the patient with other professionals (professionals i.e. [facility], [employer], lab, RT, psych nurse, certified social workers in health care, high school teacher, t eacher, corrections officer, rn case management)? Give summary @ -No Was smoking cessation discussed for >3mins.? @ -No Was critical care preformed (if so, how long)? @ -No Were there social determinants of health that impacted care today? How? (Homelessness, low income, unemployed, alcoholism, drug addiction, transportation, low edu. Level, literacy, decrease access to med. care, group home, rehab)? @ -No Was there de-escalation of care discussed even if they declined (Discuss DNR or withdrawal of care, Hospice)? DNR status @ -No What co-morbidities impacted this encounter? (DM, HTN, Smoking, COPD, CAD, Cance r, CVA, ARF, Chemo, Hep., AIDS, mental health diagnosis, sleep apnea, morbid obesity)? @ -None Was patient admitted / discharged? Hospital course, mention meds given and route, prescriptions, significant lab abnormalities, going to OR and other pertinent info. @ -Discharge patient has left eye conjunctivitis situation Tobrex return parameters suzie. Undiagnosed new problem with uncertain prognosis? @ -No Drug Therapy requiring intensive monitoring for toxicity (Heparin, Nitro, Insulin, Cardizem)? @ -No Were any procedures done? @ -No Diagnosis/symptom? @ -Conjunctivitis Acute, or Chronic, or Acute on Chronic? @ -Acute Uncomplicated (without systemic symptoms) or Complicated (systemic symptoms)? @ -Uncomplicated Side effects of treatment? @ -No Exacerbation, Progression, or Severe Exacerbation? @ -No Poses a threat to life or bodily function? How? (Chest pain, [place], [place], pneumonia, PE, COPD, DKA, ARF, appy, cholecystitis, CVA, Diverticulitis, Homicidal, Suicidal, threat to staff... and all critical care pts) @ -No Disposition Clinical Impression: Bacterial conjunctivitis Disposition: HOME SELF-CARE Condition: Stable Instructions (If sedation given, give patient instructions): Conjunctivitis (ED) Additional Instructions: Use Tobrex eyedrops 1 drop every 4 hours for 7 days. Please return to the Emergency Department if symptoms worsen or any other concerns. Is patient prescribed a controlled substance at d/c from ED?: No Referrals: Osvaldo Nuñez DO [Primary Care Provider] - 1-2 days Time of Disposition: 11:32
[2025-03-02] MEDS: TOBRAMYCIN 0.3% OPHTH DROPS 5 ML BTL LEFT EYE STA (11:41)
[2025-03-02 11:45] VITALS: BP 128/76; PULSE 72
== END 2025-03-02 11:44 | disposition home or self-care (01) ==
LOC: EC 11:00
DX: H10.89 Other conjunctivitis (principal); F17.290 Nicotine dependence, other tobacco product, uncomplicated; Z88.8 Allergy status to other drugs, medicaments and biological substances
CPT/HCPCS: 99283